=== PATIENT | female | born 1980 | race Hispanic/Latino ===

== ENCOUNTER 2019-08-06 23:53 | Emergency (ER) | payer SELFPAY ==
[2019-08-07 00:38] LABS: HEMATOCRIT 36.2 % (37.0-47.0); HEMOGLOBIN 10.4 g/dl (12.0-16.0); IMMATURE GRANULOCYTES 0.2 % (0.0-5.0); MEAN CELL VOLUME 68.4 fL CALC (80.0-100.0); MEAN CORPUSCULAR HGB 19.7 pG CALC (26.0-32.0); MEAN CORPUSCULAR HGB CONC 28.7 g/dL CAL (32.0-36.0); NEUT# 2.29 thou/uL (2.00-7.15); RED BLOOD COUNT 5.29 mill/uL (4.20-5.60); RED CELL DISTRI WIDTH 15.1 % (11.5-15.5)
[2019-08-07 01:04] VITALS: BP 107/66
[2019-08-07 01:12] LABS: ALBUMIN 4.6 g/dL (3.2-5.0); ALKALINE PHOSPHATASE 121 u/l (38-126); ANION GAP 14 (6-22 (CALC)); BILIRUBIN, TOTAL 0.3 mg/dL (0.0-1.4); BUN 16 mg/dL (7-17); BUN/CREATININE RATIO 17 (12-20 (CALC)); CARBON DIOXIDE 29 mmol/l (22-30); CHLORIDE 98 mmol/l (95-108); CREATININE 0.9 mg/dL (0.5-1.0); GFR > 60 ML/MIN (>=60 (CALC)); GFR FOR AFR.AMER. > 60 ML/MIN (>=60 (CALC)); POTASSIUM 3.5 mmol/l (3.5-5.1); SGOT/AST 29 u/l (14-36); SODIUM 138 mmol/l (137-146)
[2019-08-07 01:22] LABS: D-DIMER 0.5 mg/L (0.19-0.60); PROTHROMBIN TIME 10.7 SECONDS (9.0-12.5)
== END 2019-08-07 02:00 | disposition home or self-care (01) | DRG 179 ==
LOC: ED 23:53
PROVIDERS: Family Medicine
DX: U07.1 COVID-19 (principal); J02.8 Acute pharyngitis due to other specified organisms

== ENCOUNTER 2021-09-29 16:15 | Emergency (ER) | payer SELFPAY ==
[~2021-09-29] VITALS: Ht 157.5 cm; Wt 73.0 kg
[2021-09-29 18:20] VITALS: BP 129/50
[2021-09-29 18:30] VITALS: BP 122/65
[2021-09-29 19:00] VITALS: BP 129/62
== END 2021-09-29 19:20 | disposition home or self-care (01) | DRG 179 ==
LOC: ED 16:15
DX: U07.1 COVID-19 (principal); J02.9 Acute pharyngitis, unspecified; R05.9 Cough, unspecified; R11.2 Nausea with vomiting, unspecified; R09.81 Nasal congestion

== ENCOUNTER 2022-09-26 18:19 | Emergency (ER) | payer SELFPAY ==
[~2022-09-26] VITALS: Ht 157.5 cm; Wt 79.0 kg
[2022-09-26 20:30] VITALS: BP 131/76
[2022-09-26] MEDS ORDERED: VOLTAREN - GENE75 MG PO (20:32)
[2022-09-26 20:45] VITALS: BP 126/82
== END 2022-09-26 20:45 | disposition home or self-care (01) | DRG 563 ==
LOC: ED 18:19
DX: S39.012A Strain of muscle, fascia and tendon of lower back, initial encounter (principal); X50.0XXA Overexertion from strenuous movement or load, initial encounter